=== PATIENT | male | born 1995 | race Caucasian/White ===

== ENCOUNTER 2020-01-25 16:28 | Emergency (ER) | payer SELFPAY ==
[2020-01-25] MEDS ORDERED: NORMAL SALINE 1000 ML 1,000 ML IV ONE ×2 (16:42→18:05)
[2020-01-25] MEDS ORDERED: ONDANSETRON HCL INJ/PF 4 MG/2 ML SDV IV ONE (16:47)
--- NOTE | 2020-01-25 16:50 | ER Document Report ---
ED Medical Screen (RME) - General Chief Complaint: Pain All Over Stated Complaint: MUSCLE PAIN/CRAMPING Time Seen by Provider: 01/25/20 16:42 - HPI Notes: 01/25/20 16:46 25-year-old male brought to ED in the [facility], I was called out to, the patient because he was complaining of muscle cramping all over. Patient states that he feels nauseous, he feels like he is cramping all over, and he is twitching. Patient states he was out in the heat all day, has been drinking Gatorade. Patient states he has vomited 9 times over the last couple of hours. Denies any new medications, new foods, recent travel. Denies any fevers or chills. Patient states he does have chronic pain, does not take any pain medication. Denies any chest pain shortness of breath. Denies any abdominal pain. I have greeted and performed a rapid initial assessment of this patient. A comprehensive ED assessment and evaluation of the patient, analysis of test results and completion of the medical decision making process will be conducted by additional ED providers. Dr. Andrade, supervising physician made aware of patient's clinical status patient was immediately brought back to main side bed PHYSICAL EXAMINATION: GENERAL: Ill-appearing well-nourished and in moderate distress. HEAD: Atraumatic, normocephalic. NECK: Normal range of motion CV: Tachycardic LUNGS: No respiratory distress Musculoskeletal: Normal range of motion SKIN: Warm, Dry, normal turgor, no rashes or lesions noted. Diaphoretic 01/25/20 16:47
[2020-01-25 17:16] LABS: HEMATOCRIT 51.2 % (37.9-51.0); HEMOGLOBIN 18.3 g/dL (13.5-17.0); MEAN CORPUSCULAR HEMOGLOBIN 29.3 pg (27.0-33.4); MEAN CORPUSCULAR HGB CONC 35.6 g/dL (32.0-36.0); MEAN CORPUSCULAR VOLUME 82 fl (80-97); PLATELET COUNT 372 10^3/uL (150-450); RED BLOOD COUNT 6.22 10^6/uL (4.35-5.55); RED CELL DISTRIBUTION WIDTH 13.4 % (11.5-14.0); WHITE BLOOD COUNT 20.6 10^3/uL (4.0-10.5)
[2020-01-25 17:25] LABS: ALKALINE PHOSPHATASE 182 U/L (38-126); ASPARTATE AMINO TRANSFERASE 176 U/L (17-59); BILIRUBIN,DIRECT 0.4 mg/dL (0.0-0.4); BILIRUBIN,TOTAL 1.6 mg/dL (0.2-1.3); BLOOD UREA NITROGEN 32 mg/dL (7-20); CREATINE KINASE 820 U/L (55-170); GLUCOSE 199 mg/dL (75-110); POTASSIUM 4.1 mmol/L (3.6-5.0)
[2020-01-25 17:28] LABS: CARBON DIOXIDE 16 mmol/L (22-30); CHLORIDE 93 mmol/L (98-107)
[2020-01-25 17:32] LABS: ALBUMIN > 6.0 g/dL (3.5-5.0)
[2020-01-25 17:38] LABS: ABSOLUTE LYMPHOCYTES# (MANUAL) 5.2 10^3/uL (0.5-4.7); ABSOLUTE MONOCYTES # (MANUAL) 2.1 10^3/uL (0.1-1.4); BASOPHILS % (MANUAL) 0 % (0-2); EOSINOPHILS % (MANUAL) 0 % (0-6); LYMPHOCYTES % (MANUAL) 25 % (13-45); MONOCYTES % (MANUAL) 10 % (3-13); SEGMENTED NEUTROPHILS % (MAN) 65 % (42-78); TOTAL CELLS COUNTED 100
[2020-01-25 17:40] LABS: PLATELET COMMENT ADEQUATE; RBC MORPHOLOGY COMMENT NORMO-CYTIC/CHROMIC
[2020-01-25] MEDS ORDERED: DIAZEPAM INJ 10 MG/2 ML DISP.SYRIN IV ONE (18:07)
--- NOTE | 2020-01-25 18:11 | ER Document Report ---
ED GI/ - General Chief Complaint: Nausea/Vomiting Stated Complaint: MUSCLE PAIN/CRAMPING Time Seen by Provider: 01/25/20 16:42 Primary Care Provider: [facility] [Provider Group] - Follow up as needed [facility] [Provider Group] - Follow up as needed Notes: Patient presents stating that he has been having muscle cramping since yesterday. Patient states the cramping worsened today and he has had nausea vomiting x9 episodes. Patient denies any fever cough or congestion. Patient very anxious and continually rocking in the bed holding his leg due to cramping. Patient reports working out in the heat over the past 2 days. - HPI Patient complains to provider of: Vomiting Onset: Yesterday Timing/Duration: Worse Quality of pain: Cramping, Sharp Pain Level: 5 Location: Other - Legs, hands, lower abdomen Associated symptoms: Nausea, Vomiting. denies: Diarrhea Exacerbated by: Movement Relieved by: Denies Similar symptoms previously: No Recently seen / treated by doctor: No - Related Data Allergies/Adverse Reactions: No Known Allergies Allergy (Verified 01/25/20 17:23) Past Medical History - General Information source: Patient - Social History Smoking Status: Former Smoker Frequency of alcohol use: None Drug Abuse: None Occupation: Works as an aircraft Lives with: Family Family History: Reviewed & Not Pertinent - Past Medical History Cardiac Medical History: Reports: Other - Bicuspid Surgical Hx: Negative Review of Systems - Review of Systems Constitutional: No symptoms reported. denies: Fever EENT: No symptoms reported Cardiovascular: No symptoms reported. denies: Chest pain Respiratory: No symptoms reported Gastrointestinal: Abdominal pain, Nausea, Vomiting Genitourinary: No symptoms reported Musculoskeletal: Muscle pain Skin: No symptoms reported Hematologic/Lymphatic: No symptoms reported Neurological/Psychological: No symptoms reported Physical Exam - Vital signs Vitals: Resp Pulse Ox 13 99 01/25/20 16:48 01/25/20 16:48 - General General appearance: Alert, Anxious In distress: Moderate - HEENT Head: Normocephalic, Atraumatic Eyes: Normal Conjunctiva: Normal Nasal: Normal Mouth/Lips: Normal Mucous membranes: Dry - Respiratory Respiratory status: No respiratory distress Chest status: Nontender Breath sounds: Normal. No: Rales, Rhonchi, Stridor Chest palpation: Normal. No: [place] frothy sputum - Cardiovascular Rhythm: Regular. No: Tachycardia Heart sounds: S1 appreciated, S2 appreciated - Back Back: Normal, Nontender - Extremities General upper extremity: Normal inspection, Normal strength, Other - Occasional muscle spasm to right hand General lower extremity: Normal inspection, Normal strength, Other - Occasional muscle spasm to left thigh - Neurological Neuro grossly intact: Yes Cognition: Normal [place] Coma Scale Eye Opening: Spontaneous [place] Coma Scale Verbal: Oriented [place] Coma Scale Motor: Obeys Commands [place] Coma Scale Total: 15 - Psychological Associated symptoms: Anxious - Skin Skin Temperature: Warm Skin Moisture: Diaphoretic Skin Color: Normal Course - Re-evaluation Re-evalutation: 01/25/20 19:00 Muscle cramping improved after administration of Valium. Patient vital signs stable at this time. IV fluids continue to infuse. 01/25/20 19:[address] Fraire regarding patient presentation and concern about need for admission. Dr. Fraire recommends rechecking a comprehensive panel after his third liter of IV fluids has infused and calling him back with the results. 01/25/20 20:31 Patient resting comfortably, reports improvement of his symptoms. Vital signs stable at this time. IV fluids continue to infuse. 01/25/20 22:41 Patient's repeat CPK as well as chemistry and CBC reviewed. Patient clinically improved as well as his diagnostic test results at this time. Will plan for discharge with good return precautions discussed. Patient will be encouraged to increase oral fluids as well as to follow-up with his primary doctor for recheck. Patient will be encouraged to avoid the heat and strenuous work for several days. Consulted with Dr. fraire and discussed patient's repeat laboratory tests, agrees with discharge plan of care at this time. 01/25/20 22:42 Patient states that he does have a history of alcoholism in the past with liver function test abnormality. 01/25/20 22:42 - Vital Signs Vital signs: Temp Pulse Resp BP Pulse Ox 97.7 F 96 20 124/67 97 01/25/20 21:35 01/25/20 17:27 01/25/20 22:01 01/25/20 22:01 01/25/20 22:01 - Laboratory Result Diagrams: 01/25/20 21:10 01/25/20 21:10 Laboratory results interpreted by me: 01/25/20 01/25/20 01/25/20 16:50 16:50 17:36 WBC 20.6 H RBC 6.22 H Hgb 18.3 H Hct 51.2 H Lymph % (Auto) Absolute Neuts (auto) Seg Neutrophils % Abs Neuts (Manual) 13.4 H Abs Lymphs (Manual) 5.2 H Abs Monocytes (Manual) 2.1 H Sodium 134.9 L Chloride 93 L Carbon Dioxide 16 L Anion Gap 26 H BUN 32 H Creatinine 2.74 H Est GFR ( Amer) 35 L Est GFR (MDRD) Non-Af 29 L Glucose 199 H Lactic Acid 2.3 H Calcium 12.0 H* Total Bilirubin 1.6 H AST 176 H ALT 431 H Alkaline Phosphatase 182 H Creatine Kinase 820 H C-Reactive Protein 15.0 H Total Protein 11.0 H Albumin > 6.0 H Urine Protein Urine Ketones Urine Ascorbic Acid 01/25/20 01/25/20 01/25/20 21:10 21:10 21:10 WBC 14.9 H RBC Hgb Hct Lymph % (Auto) 12.1 L Absolute Neuts (auto) 12.1 H Seg Neutrophils % 81.4 H Abs Neuts (Manual) Abs Lymphs (Manual) Abs Monocytes (Manual) Sodium 133.2 L Chloride Carbon Dioxide Anion Gap BUN 28 H Creatinine 1.39 H Est GFR ( Amer) Est GFR (MDRD) Non-Af Glucose Lactic Acid Calcium Total Bilirubin AST 100 H ALT 293 H Alkaline Phosphatase Creatine Kinase 863 H C-Reactive Protein Total Protein Albumin Urine Protein Urine Ketones Urine Ascorbic Acid 01/25/20 21:20 WBC RBC Hgb Hct Lymph % (Auto) Absolute Neuts (auto) Seg Neutrophils % Abs Neuts (Manual) Abs Lymphs (Manual) Abs Monocytes (Manual) Sodium Chloride Carbon Dioxide Anion Gap BUN Creatinine Est GFR ( Amer) Est GFR (MDRD) Non-Af Glucose Lactic Acid Calcium Total Bilirubin AST ALT Alkaline Phosphatase Creatine Kinase C-Reactive Protein Total Protein Albumin Urine Protein 100 H Urine Ketones 80 H Urine Ascorbic Acid 40 H 01/25/20 22:42 Labs- All tests 24 hr 01/25/20 01/25/20 01/25/20 16:50 16:50 16:50 WBC 20.6 H RBC 6.22 H Hgb 18.3 H Hct 51.2 H MCV 82 MCH 29.3 MCHC 35.6 RDW 13.4 Plt Count 372 Lymph % (Auto) Not Reportable [place] % (Auto) Not Reportable Eos % (Auto) Not Reportable Baso % (Auto) Not Reportable Absolute Neuts (auto) Not Reportable Absolute Lymphs (auto) Not Reportable Absolute Monos (auto) Not Reportable Absolute Eos (auto) Not Reportable Absolute Basos (auto) Not Reportable Total Counted 100 Seg Neutrophils % Not Reportable Seg Neuts % (Manual) 65 Lymphocytes % (Manual) 25 Monocytes % (Manual) 10 Eosinophils % (Manual) 0 Basophils % (Manual) 0 Abs Neuts (Manual) 13.4 H Abs Lymphs (Manual) 5.2 H Abs Monocytes (Manual) 2.1 H Absolute Eos (Manual) 0.0 Abs Basophils (Manual) 0.0 Platelet Comment ADEQUATE RBC Morph Comment NORMO-CYTIC/CHROMIC Sodium 134.9 L Potassium 4.1 Chloride 93 L Carbon Dioxide 16 L Anion Gap 26 H BUN 32 H Creatinine 2.74 H Est GFR ( Amer) 35 L Est GFR (MDRD) Non-Af 29 L Glucose 199 H Lactic Acid Calcium 12.0 H* Total Bilirubin 1.6 H Direct Bilirubin 0.4 Neonat Total Bilirubin Not Reportable Neonat Direct Bilirubin Not Reportable Neonat Indirect Bili Not Reportable AST 176 H ALT 431 H Alkaline Phosphatase 182 H Creatine Kinase 820 H Troponin I < 0.012 C-Reactive Protein 15.0 H Total Protein 11.0 H Albumin > 6.0 H Lipase 175.7 Urine Color Urine Appearance Urine pH Ur Specific [place] Urine Protein Urine Glucose (UA) Urine Ketones Urine Blood Urine Nitrite Urine Bilirubin Urine Urobilinogen Ur Leukocyte Esterase Urine WBC (Auto) Urine RBC (Auto) U Hyaline Cast (Auto) Squamous Epi Cells Auto Urine Mucus (Auto) Urine Ascorbic Acid 01/25/20 01/25/20 01/25/20 17:36 21:10 21:10 WBC 14.9 H RBC 5.08 Hgb 14.7 D Hct 42.6 MCV 84 MCH 28.9 MCHC 34.5 RDW 13.2 Plt Count 291 Lymph % (Auto) 12.1 L [place] % (Auto) 6.3 Eos % (Auto) 0.0 Baso % (Auto) 0.2 Absolute Neuts (auto) 12.1 H Absolute Lymphs (auto) 1.8 Absolute Monos (auto) 0.9 Absolute Eos (auto) 0.0 Absolute Basos (auto) 0.0 Total Counted Seg Neutrophils % 81.4 H Seg Neuts % (Manual) Lymphocytes % (Manual) Monocytes % (Manual) Eosinophils % (Manual) Basophils % (Manual) Abs Neuts (Manual) Abs Lymphs (Manual) Abs Monocytes (Manual) Absolute Eos (Manual) Abs Basophils (Manual) Platelet Comment RBC Morph Comment Sodium 133.2 L Potassium 4.5 Chloride 101 Carbon Dioxide 22 Anion Gap 10 BUN 28 H Creatinine 1.39 H Est GFR ( Amer) > 60 Est GFR (MDRD) Non-Af > 60 Glucose 110 Lactic Acid 2.3 H Calcium 9.4 Total Bilirubin 1.0 Direct Bilirubin 0.1 Neonat Total Bilirubin Not Reportable Neonat Direct Bilirubin Not Reportable Neonat Indirect Bili Not Reportable AST 100 H ALT 293 H Alkaline Phosphatase 109 Creatine Kinase Troponin I C-Reactive Protein Total Protein 7.7 Albumin 4.7 Lipase Urine Color Urine Appearance Urine pH Ur Specific [place] Urine Protein Urine Glucose (UA) Urine Ketones Urine Blood Urine Nitrite Urine Bilirubin Urine Urobilinogen Ur Leukocyte Esterase Urine WBC (Auto) Urine RBC (Auto) U Hyaline Cast (Auto) Squamous Epi Cells Auto Urine Mucus (Auto) Urine Ascorbic Acid 01/25/20 01/25/20 21:10 21:20 WBC RBC Hgb Hct MCV MCH MCHC RDW Plt Count Lymph % (Auto) [place] % (Auto) Eos % (Auto) Baso % (Auto) Absolute Neuts (auto) Absolute Lymphs (auto) Absolute Monos (auto) Absolute Eos (auto) Absolute Basos (auto) Total Counted Seg Neutrophils % Seg Neuts % (Manual) Lymphocytes % (Manual) Monocytes % (Manual) Eosinophils % (Manual) Basophils % (Manual) Abs Neuts (Manual) Abs Lymphs (Manual) Abs Monocytes (Manual) Absolute Eos (Manual) Abs Basophils (Manual) Platelet Comment RBC Morph Comment Sodium Potassium Chloride Carbon Dioxide Anion Gap BUN Creatinine Est GFR ( Amer) Est GFR (MDRD) Non-Af Glucose Lactic Acid Calcium Total Bilirubin Direct Bilirubin Neonat Total Bilirubin Neonat Direct Bilirubin Neonat Indirect Bili AST ALT Alkaline Phosphatase Creatine Kinase 863 H Troponin I C-Reactive Protein Total Protein Albumin Lipase Urine Color YELLOW Urine Appearance CLOUDY Urine pH 5.0 Ur Specific [place] 1.023 Urine Protein 100 H Urine Glucose (UA) NEGATIVE Urine Ketones 80 H Urine Blood NEGATIVE Urine Nitrite NEGATIVE Urine Bilirubin NEGATIVE Urine Urobilinogen NEGATIVE Ur Leukocyte Esterase NEGATIVE Urine WBC (Auto) 2 Urine RBC (Auto) 1 U Hyaline Cast (Auto) 65 Squamous Epi Cells Auto 1 Urine Mucus (Auto) MOD Urine Ascorbic Acid 40 H Discharge - Discharge Clinical Impression: Dehydration, Muscle cramps, Acute kidney injury, Liver function test abnormality Heat exhaustion Qualifiers: Encounter type: initial encounter Qualified Code(s): T67.5XXA - Heat exhaustion, unspecified, initial encounter Condition: Stable Disposition: HOME, SELF-CARE Instructions: Dehydration ([facility]), Heat Exhaustion ([facility]), Intravenous (IV) Fluids ([facility]), Liver Function Abnormality ([facility]) Additional Instructions: Increase oral fluids and stay well-hydrated. Avoid being out in the heat and avoid any strenuous physical activity. Follow-up with a primary doctor this week for recheck. You can return to the emergency department on Thursday if you are unable to get in with a primary doctor to have your labs repeated. Return immediately for any new or worsening symptoms such as vomiting, pain, muscle cramping, or any concerning new symptoms. Forms: Return to Work Referrals: [facility] [Provider Group] - Follow up as needed [facility] [Provider Group] - Follow up as needed
[2020-01-25 18:26] LABS: ANION GAP 26 (5-19)
[2020-01-25] MEDS ORDERED: RINGERS SOLUTION,LACTATED 1,000 ML IV ONE ×2 (19:12→20:32)
[2020-01-25 21:51] LABS: ABSOLUTE LYMPHOCYTES (AUTO) 1.8 10^3/uL (0.5-4.7); ABSOLUTE MONOCYTES (AUTO) 0.9 10^3/uL (0.1-1.4); ABSOLUTE NEUT (AUTO) 12.1 10^3/uL (1.7-8.2); BASOPHILS % (AUTO) 0.2 % (0-2); HEMATOCRIT 42.6 % (37.9-51.0); LYMPHOCYTES % (AUTO) 12.1 % (13-45); MEAN CORPUSCULAR HEMOGLOBIN 28.9 pg (27.0-33.4); MEAN CORPUSCULAR HGB CONC 34.5 g/dL (32.0-36.0); MEAN CORPUSCULAR VOLUME 84 fl (80-97); MONOCYTES % (AUTO) 6.3 % (3-13); PLATELET COUNT 291 10^3/uL (150-450); RED BLOOD COUNT 5.08 10^6/uL (4.35-5.55); RED CELL DISTRIBUTION WIDTH 13.2 % (11.5-14.0); SEGMENTED NEUTROPHILS % (AUTO) 81.4 % (42-78); TOTAL CELLS COUNTED % (AUTO) 100 %; WHITE BLOOD COUNT 14.9 10^3/uL (4.0-10.5)
[2020-01-25 21:52] LABS: HEMOGLOBIN 14.7 g/dL (13.5-17.0)
[2020-01-25 21:53] LABS: ALBUMIN 4.7 g/dL (3.5-5.0); ALKALINE PHOSPHATASE 109 U/L (38-126); ANION GAP 10 (5-19); ASPARTATE AMINO TRANSFERASE 100 U/L (17-59); BILIRUBIN,DIRECT 0.1 mg/dL (0.0-0.4); BLOOD UREA NITROGEN 28 mg/dL (7-20); CALCIUM 9.4 mg/dL (8.4-10.2); CARBON DIOXIDE 22 mmol/L (22-30); CHLORIDE 101 mmol/L (98-107); GLUCOSE 110 mg/dL (75-110); POTASSIUM 4.5 mmol/L (3.6-5.0); TOTAL PROTEIN 7.7 g/dL (6.3-8.2)
[2020-01-25 22:07] LABS: APPEARANCE,URINE CLOUDY; BILIRUBIN,URINE NEGATIVE (NEGATIVE); COLOR,URINE YELLOW; GLUCOSE, URINE NEGATIVE (NEGATIVE); KETONES,URINE 80 mg/dL (NEGATIVE); LEUKOCYTE ESTERASE,URINE NEGATIVE (NEGATIVE); NITRITE,URINE NEGATIVE (NEGATIVE); PROTEIN,URINE 100 mg/dL (NEGATIVE); URINE SPECIFIC GRAVITY 1.023; UROBILINOGEN,URINE NEGATIVE mg/dL (<2.0)
[2020-01-25 22:09] VITALS: BP 124/67
--- NOTE | 2020-01-26 13:22 | EKG REPORT ---
SEVERITY:- ABNORMAL ECG - SINUS RHYTHM ST ELEVATION SUGGESTS PERICARDITIS : Confirmed by: Peña Acevedo MD 26-Jan-2020 13:21:04
--- NOTE | 2020-01-26 13:22 | EKG REPORT ---
SEVERITY:- ABNORMAL ECG - SINUS BRADYCARDIA ST ELEVATION SUGGESTS PERICARDITIS : Confirmed by: Pñea Acevedo MD 26-Jan-2020 13:20:58
== END 2020-01-25 22:59 | disposition home or self-care (01) ==
LOC: ER 16:28
DX: T67.5XXA Heat exhaustion, unspecified, initial encounter (principal); R11.2 Nausea with vomiting, unspecified; E86.0 Dehydration; R25.2 Cramp and spasm; N17.9 Acute kidney failure, unspecified; R94.5 Abnormal results of liver function studies; M79.10 Myalgia, unspecified site; R10.30 Lower abdominal pain, unspecified; M79.604 Pain in right leg; M79.605 Pain in left leg; M79.641 Pain in right hand; M79.642 Pain in left hand; X58.XXXA Exposure to other specified factors, initial encounter; Z87.891 Personal history of nicotine dependence; F41.9 Anxiety disorder, unspecified
CPT/HCPCS: 93005; 99284; 96361; 96374; 96375; 36415; 82550; 83605; 83690; 85025; 87070; 86140; 80053; 81001; 84484; 93010; J3360; J2405; J7030; J7120